=== PATIENT | female | born 1990 | race Caucasian/White ===

== ENCOUNTER → 2018-05-21 | Outpatient (CLI) | payer OTHER ==
[~2018-05-21] VITALS: Ht 170.2 cm; Wt 82.0 kg
[2018-05-21 12:12] VITALS: BP 110/65
== END | disposition home or self-care (01) ==
LOC: SRCNTR 12:05
PROVIDERS: ATTEND Hospitalist
DX: E04.2 Nontoxic multinodular goiter (principal); R10.9 Unspecified abdominal pain
CPT/HCPCS: G0463

== ENCOUNTER → 2018-06-01 | Outpatient (CLI) | payer OTHER ==
[2018-06-01 10:15] LABS: BASOPHILS % (AUTO) 0.9 % (0.0-2.0); EOSINOPHILS % (AUTO) 2.2 % (1.0-6.0); HEMOGLOBIN 13.2 g/dL (12.0-16.0); LYMPHOCYTES # (AUTO) 2.6 K/uL (1.0-4.8); LYMPHOCYTES % (AUTO) 35.4 % (22.0-44.0); MEAN CORPUSCULAR HGB CONC 34.8 G/dL (31.0-37.0); MEAN CORPUSCULAR VOLUME 86 fL (80-100); MONOCYTES # (AUTO) 0.4 K/uL (0.1-1.0); MONOCYTES % (AUTO) 6.1 % (2.0-9.0); NEUTROPHILS % (AUTO) 55.4 % (40.0-70.0); PLATELET COUNT (AUTO) 301 K/uL (150-450); RED BLOOD CELL COUNT(AUTO) 4.41 MIL/uL (4.00-5.20)
[2018-06-01 10:31] LABS: HEMOGLOBIN A1C 5.1 % (4.5-6.2)
[2018-06-01 10:38] LABS: ALANINE AMINOTRANSFERASE 16 U/L (12-78); ALBUMIN 4.1 g/dL (3.4-5.0); ALKALINE PHOSPHATASE 62 U/L (46-116); ANION GAP 7 mmol/L (8-16); ASPARTATE AMINOTRANSFERASE 24 U/L (15-37); BILIRUBIN,TOTAL 0.3 mg/dL (0.1-1.0); CARBON DIOXIDE 28 mmol/L (22-29); CHLORIDE 103 mmol/L (98-107); CHOL/HDL RATIO 3.8 (3.9-5.7); CHOLESTEROL 171 mg/dL (131-200); CREATININE 0.83 mg/dL (0.60-1.30); FREE T4 (FREE THYROXINE) 1.21 ng/dL (0.76-1.46); GLOMERULAR FILTR. RATE CALC > 60 mL/min (>60); GLUCOSE,RANDOM 80 mg/dL (70-110); HDL CHOLESTEROL 45 mg/dL (40-60); LDL CHOL (CALC.) 114 mg/dL (0-130); POTASSIUM 3.7 mmol/L (3.5-5.1); SODIUM SERUM 138 mmol/L (136-145); THYROID STIMULATING HORMONE 1.46 uIU/mL (0.36-3.74); TRIGLYCERIDES 59 mg/dL (15-150); UREA NITROGEN, BLOOD 13 mg/dL (7-18)
== END | disposition home or self-care (01) ==
LOC: RADPV 07:47
PROVIDERS: ATTEND Hospitalist
DX: E04.2 Nontoxic multinodular goiter (principal)
CPT/HCPCS: 76536; 76700; 83036; 84439; 84443

== ENCOUNTER 2018-10-13 09:46 | Emergency (ER) | payer OTHER ==
[~2018-10-13] VITALS: Ht 170.2 cm; Wt 79.0 kg
[2018-10-13] MEDS ORDERED: CYCLOBENZAPRINE HCL 10 MG TABLET PO ONE (10:30)
[2018-10-13] MEDS ORDERED: LIDOCAINE 5% TRANSDERMAL PATCH TD ONE (10:30)
[2018-10-13] MEDS ORDERED: KETOROLAC TROMETHAMINE 30 MG/ML VIAL IVP ONE (10:30)
[2018-10-13] MEDS ORDERED: LORazepam 2 MG/ML VIAL IVP ONE (10:30)
[2018-10-13 12:40] VITALS: BP 137/78
[2018-10-13] MEDS ORDERED: HYDROCODONE/ACETAMINOPHEN 5-325 MG TABLET PO ONE (12:45)
== END 2018-10-13 13:29 | disposition home or self-care (01) ==
LOC: EMS 09:48
DX: M54.5 Low back pain (principal); Z88.1 Allergy status to other antibiotic agents; Z88.8 Allergy status to other drugs, medicaments and biological substances
CPT/HCPCS: 72148; 96374; 96375; 99284; J1885; J2060

== ENCOUNTER 2019-09-01 03:14 | Emergency (ER) | payer OTHER ==
[~2019-09-01] VITALS: Ht 170.2 cm; Wt 77.3 kg
[2019-09-01 03:45] VITALS: BP 131/81
== END 2019-09-01 04:38 | disposition home or self-care (01) ==
LOC: EEVIPCON 03:14 → EMS 03:14
DX: R05 Cough (principal); J02.9 Acute pharyngitis, unspecified; R06.02 Shortness of breath; R50.9 Fever, unspecified; Z20.828 Contact with and (suspected) exposure to other viral communicable diseases; Z88.0 Allergy status to penicillin; Z88.5 Allergy status to narcotic agent
CPT/HCPCS: 99283; U0003

== ENCOUNTER → 2019-11-23 | Outpatient (CLI) | payer OTHER ==
[2019-11-23 11:29] LABS: BASOPHILS % (AUTO) 0.5 % (0.0-2.0); EOSINOPHILS % (AUTO) 1.4 % (1.0-6.0); HEMATOCRIT 41.5 % (36-46); LYMPHOCYTES # (AUTO) 2.2 K/uL (1.0-4.8); LYMPHOCYTES % (AUTO) 29.2 % (22.0-44.0); MEAN CORPUSCULAR HEMOGLOBIN 30.2 pg (26.0-34.0); MEAN CORPUSCULAR HGB CONC 33.7 G/dL (31.0-37.0); MEAN CORPUSCULAR VOLUME 90 fL (80-100); MONOCYTES # (AUTO) 0.4 K/uL (0.1-1.0); MONOCYTES % (AUTO) 5.6 % (2.0-9.0); NEUTROPHILS # (AUTO) 4.9 K/uL (1.8-7.7); NEUTROPHILS % (AUTO) 63.3 % (40.0-70.0); PLATELET COUNT (AUTO) 299 K/uL (150-450); RED BLOOD CELL COUNT(AUTO) 4.62 MIL/uL (4.00-5.20)
[2019-11-23 11:57] LABS: APPEARANCE,URINE SLIGHTLY CLOUDY (CLEAR); BILIRUBIN,URINE NEGATIVE (NEGATIVE); GLUCOSE, URINE (UA) NEGATIVE (NEGATIVE); KETONES,URINE NEGATIVE (NEGATIVE); LEUKOCYTE ESTERASE ,URINE SMALL (NEGATIVE); NITRATE,URINE NEGATIVE (NEGATIVE); OCCULT BLOOD,URINE NEGATIVE (NEGATIVE); PROTEIN,URINE NEGATIVE (NEGATIVE); UROBILINOGEN,URINE 0.2 mg/dL (<=1.0)
[2019-11-23 12:17] LABS: BACTERIA,URINE Many /HPF (None Seen); RBC,URINE None Seen /HPF (0-2); SQUAMOUS EPITHELIAL CELL,UR Many /LPF (None Seen)
[2019-11-23 12:22] LABS: ALANINE AMINOTRANSFERASE 26 U/L (12-78); ALBUMIN 3.8 g/dL (3.4-5.0); ALKALINE PHOSPHATASE 44 U/L (46-116); ANION GAP 9 mmol/L (8-16); ASPARTATE AMINOTRANSFERASE 18 U/L (15-37); BILIRUBIN,TOTAL 0.3 mg/dL (0.1-1.0); CALCIUM, TOTAL 9.7 mg/dL (8.8-10.5); CARBON DIOXIDE 28 mmol/L (22-29); CHLORIDE 101 mmol/L (98-107); CREATININE 0.93 mg/dL (0.60-1.30); GLOMERULAR FILTR. RATE CALC > 60 mL/min (>60); GLUCOSE,RANDOM 93 mg/dL (70-110); POTASSIUM 3.6 mmol/L (3.5-5.1); SODIUM SERUM 138 mmol/L (136-145); TOTAL PROTEIN, SERUM 7.9 g/dL (6.4-8.2); UREA NITROGEN, BLOOD 14 mg/dL (7-18)
[2019-11-24 09:20] LABS: HIV 1-2 SCREEN 4TH GEN W/RFLX Non Reactive (Non Reactive)
== END | disposition home or self-care (01) ==
LOC: LABPV 10:15
PROVIDERS: ATTEND Family Medicine
DX: Z11.3 Encounter for screening for infections with a predominantly sexual mode of transmission (principal); M54.5 Low back pain
CPT/HCPCS: 80074; 86592; 87086; 87389; 87491; 87591

== ENCOUNTER 2019-12-07 12:25 | Emergency (ER) | payer OTHER ==
[~2019-12-07] VITALS: Ht 172.7 cm; Wt 75.0 kg
[2019-12-07 12:31] VITALS: BP 124/82
[2019-12-07 13:11] LABS: RAPID GROUP A STREP NEGATIVE (NEGATIVE)
== END 2019-12-07 15:57 | disposition home or self-care (01) ==
LOC: EMS 12:26
DX: J02.9 Acute pharyngitis, unspecified (principal); Z20.828 Contact with and (suspected) exposure to other viral communicable diseases; Z88.0 Allergy status to penicillin; Z88.8 Allergy status to other drugs, medicaments and biological substances
CPT/HCPCS: 87426; 87430

== ENCOUNTER → 2019-12-22 | Outpatient (CLI) | payer OTHER | END | disposition home or self-care (01) | LOC: LABMN 05:44 | DX: Z20.828 Contact with and (suspected) exposure to other viral communicable diseases (principal) | CPT/HCPCS: U0003-CS ==

== ENCOUNTER 2020-02-16 12:08 | Emergency (ER) | payer OTHER ==
[~2020-02-16] VITALS: Ht 170.2 cm; Wt 68.2 kg
[2020-02-16 12:25] VITALS: BP 123/88
[2020-02-16 12:47] LABS: COVID AG,FIA SOURCE NASOPHARYNGEAL
== END 2020-02-16 13:00 | disposition home or self-care (01) ==
LOC: EMS 12:16
DX: R09.81 Nasal congestion (principal); Z20.828 Contact with and (suspected) exposure to other viral communicable diseases; Z88.1 Allergy status to other antibiotic agents; Z88.8 Allergy status to other drugs, medicaments and biological substances
CPT/HCPCS: 87426; 99283; U0003

== ENCOUNTER → 2020-03-12 | Outpatient (CLI) | payer OTHER | END | disposition home or self-care (01) | LOC: LABMN 02:52 | DX: Z20.828 Contact with and (suspected) exposure to other viral communicable diseases (principal) | CPT/HCPCS: U0003 ==

== ENCOUNTER 2020-03-16 03:42 | Emergency (ER) | payer OTHER ==
[~2020-03-16] VITALS: Ht 170.2 cm; Wt 75.0 kg
[2020-03-16 03:47] VITALS: BP 120/80
[2020-03-16 04:24] LABS: COVID AG,FIA SOURCE NASOPHARYNGEAL
== END 2020-03-16 05:21 | disposition home or self-care (01) ==
LOC: EMS 03:43
DX: Z20.828 Contact with and (suspected) exposure to other viral communicable diseases (principal); Z88.0 Allergy status to penicillin; Z88.1 Allergy status to other antibiotic agents
CPT/HCPCS: 87426